=== PATIENT | male | born 1995 | race Caucasian/White ===

== ENCOUNTER 2018-08-16 11:23 | Emergency (ER) | payer SELFPAY ==
--- NOTE | 2018-08-16 11:56 | EDPHY ---
H & P Stated Complaint: testicle pain "on and off x years" & and throat pain x years Time Seen by Provider: 08/16/18 11:46 HPI/ROS: CHIEF COMPLAINT: Right testicular pain HISTORY OF PRESENT ILLNESS: The patient is a 23-year-old man who comes to the emergency department complaining of right testicular pain off and on for the last 2 years. He has not been sexually active for a year. No discharge. No hematuria. He states that it hurts when he walks and moves. No swelling. He states that it does not hurt more than usual recently but that he is currently in a "program" and has more time to sit around think about it. Also he spoke with 1 of the other people in the program we told them that they had to have a testicle removed because of torsion. No fevers. No recent trauma. No rash. Severity: Moderate and intermittent Modifying factors: None REVIEW OF SYSTEMS: Constitutional: denies: chills, fever, recent illness, recent injury EENTM: denies: blurred vision, double vision, nose congestion Respiratory: denies: cough, shortness of breath Cardiac: denies: chest pain, irregular heart rate, lightheadedness, palpitations Gastrointestinal/Abdominal: denies: abdominal pain, diarrhea, nausea, vomiting, blood streaked stools Genitourinary: See HPI denies: dysuria, frequency, hematuria Musculoskeletal: denies: joint pain, muscle pain Skin: denies: lesions, rash, jaundice, bruising Neurological: denies: headache, numbness, paresthesia, tingling, dizziness, weakness Hematologic/Lymphatic: denies: blood clots, easy bleeding, easy bruising Immunologic/allergic: denies: HIV/AIDS, transplant 10 systems reviewed and negative except as noted EXAM: GENERAL: Well-appearing, well-nourished and in no acute distress. HEAD: Atraumatic, normocephalic. EYES: Pupils equal round and reactive to light, extraocular movements intact, sclera anicteric, conjunctiva are normal. ENT: TMs normal, nares patent, oropharynx clear without exudates. Moist mucous membranes. NECK: Normal range of motion, supple without lymphadenopathy or JVD. LUNGS: Breath sounds clear to auscultation bilaterally and equal. No wheezes rales or rhonchi. HEART: Regular rate and rhythm without murmurs, rubs or gallops. ABDOMEN: Soft, nontender, normoactive bowel sounds. No guarding, no rebound. No masses appreciated. Slight tenderness to right epididymis, normal appearing testicle. Nontender. Normal lie, normal cremasteric no discharge. No lesions. BACK: No CVA tenderness, no spinal tenderness, step-offs or deformities EXTREMITIES: Normal range of motion, no pitting or edema. No clubbing or cyanosis. NEUROLOGICAL: Cranial nerves II through XII grossly intact. Normal speech, normal gait. 5/5 strength, normal movement in all extremities, normal sensation , normal reflexes PSYCH: Normal mood, normal affect. SKIN: Warm, dry, normal turgor, no visible rashes or lesions. Source: Patient Exam Limitations: No limitations - Medical/Surgical History Hx Asthma: No Hx Chronic Respiratory Disease: No Hx Diabetes: No Hx Cardiac Disease: No Hx Renal Disease: No Hx Cirrhosis: No Hx Alcoholism: No Hx HIV/AIDS: No Hx Splenectomy or Spleen Trauma: No Other PMH: denies - Family History Significant Family History: No pertinent family hx - Social History Smoking Status: Current every day smoker Alcohol Use: Sober Drug Use: None Constitutional: Initial Vital Signs Temperature (C) 36 C 08/16/18 11:26 Heart Rate 81 08/16/18 11:26 Respiratory Rate 18 08/16/18 11:26 Blood Pressure 127/83 H 08/16/18 11:26 O2 Sat (%) 97 08/16/18 11:26 O2 Delivery Mode Room Air Allergies/Adverse Reactions: No Known Allergies Allergy (Unverified 08/16/18 11:26) Home Medications: Medication Instructions Recorded Doxycycline Hyclate [Vibramycin] 100 mg PO BID #30 cap 08/16/18 Medical Decision Making - Diagnostics Imaging Results: Imaging Impressions Testicular Ultrasound 08/16/18 11:53 Impression: Normal scrotal ultrasound. Findings discussed with TING DICKEY 08/16/2018 at 12:32. Imaging: Discussed imaging studies w/ house calls nurse practitioner Radiologist ED Course/Re-evaluation: When I returned the patient had left the department to make a phone call. The patient's workup is unremarkable. If he returns, Because of the epididymal pain I will treat him for possible STD or urinary type infections although he denies sexual contact for over a year. He is currently homeless and will be difficult to contact later if antibiotics were necessary from the cultures. Differential Diagnosis: Partial list of the Differential diagnosis considered include but were not limited to; epididymitis, urinary tract infection, torsion and although unlikely based on the history and physical exam, I also considered mass, ischemia, hernia. - Data Points Laboratory Results: 08/16/18 08/16/18 12:20 12:16 Urine Color PALE YELLOW Urine Appearance CLEAR Urine pH 7.0 (5.0-7.5) Ur Specific Byron 1.006 (1.002-1.030) Urine Protein NEGATIVE (NEGATIVE) Urine Ketones NEGATIVE (NEGATIVE) Urine Blood NEGATIVE (NEGATIVE) Urine Nitrate NEGATIVE (NEGATIVE) Urine Bilirubin NEGATIVE (NEGATIVE) Urine Urobilinogen NEGATIVE EU EU (0.2-1.0) Ur Leukocyte Esterase NEGATIVE (NEGATIVE) Urine RBC 1-3 /hpf /hpf (0-3) Urine WBC 0-1 /hpf /hpf (0-3) Ur Epithelial Cells NONE SEEN /lpf /lpf (NONE-1+) Urine Glucose NEGATIVE (NEGATIVE) C.trachomatis RNA (TMA) Pending N.gonorrhoeae RNA (TMA) Pending Departure - Departure Disposition: Home, Routine, Self-Care Clinical Impression: Testicle pain Condition: Fair Instructions: Testicle Pain (ED) Referrals: NONE *PRIMARY CARE P,. [Primary Care Provider] - As per Instructions Prescriptions: Doxycycline Hyclate [Vibramycin] 100 mg PO BID #30 cap
[2018-08-16] MEDS ORDERED: DOXYCYCLINE HYCLATE 100 MG CAP/TAB PO ONE (13:37)
[2018-08-16] MEDS ORDERED: IBUPROFEN 600 MG TAB PO ONE ×2 (13:46→13:47)
[2018-08-16 13:52] VITALS: BP 127/63
--- NOTE | 2018-08-16 18:59 | ASMTCMCOM ---
CM Note CM Note Notes: Pt requesting food and/or a meal voucher. This CM spoke w/pt and informed him that we do not provide meals or meal vouchers from the ED but that there are a couple of free community table meal options. Offered resources including where to get a sack lunch today and the community free table meal schedule but pt declined. Pt states he has been living at a [facility] program. Pt declines other resources. CM available for further assistance if needed. Date Signed: 08/16/2018 06:58 PM Electronically Signed By:Whit Bryan RN
[2018-08-18 12:12] LABS: GC AMPLIFICATION GENPROBE NEGATIVE (NEGATIVE)
== END 2018-08-16 14:24 | disposition home or self-care (01) ==
DX: N50.811 Right testicular pain (principal); F17.200 Nicotine dependence, unspecified, uncomplicated; Z59.0 Homelessness
CPT/HCPCS: J0696